=== PATIENT | female | born 1970 | race Caucasian/White ===

== ENCOUNTER 2016-08-12 08:41 | Emergency (ER) | payer BC ==
[~2016-08-12] VITALS: Wt 80.0 kg
[2016-08-12 08:43] VITALS: Wt 80.0 kg
[2016-08-12] MEDS ORDERED: LIDOCAINE/MYLANTA 40 ML BTL PO STA (08:57)
[2016-08-12] MEDS ORDERED: SOD CHLORIDE 0.9% 1,000 ML IV STA (08:57)
[2016-08-12] MEDS ORDERED: FAMOTIDINE 20 MG TAB PO STA (08:57)
[2016-08-12 09:27] LABS: ADD SCAN DIFF NO
[2016-08-12 09:30] LABS: BASOPHILS % 0.2 % (0.0-2.0); EOSINOPHILS # 0.1 10^3/ul (0.0-0.5); HEMATOCRIT 37.9 % (37.0-47.0); HEMOGLOBIN 11.7 g/dl (12.0-16.0); LYMPHOCYTES # 0.8 10^3/ul (0.8-2.9); LYMPHOCYTES % 13.9 % (15.0-51.0); MEAN CORPUSCULAR HEMOGLOBIN 25.8 pg (29.0-33.0); MEAN CORPUSCULAR HGB CONC 30.9 g/dl (32.0-37.0); MEAN CORPUSCULAR VOLUME 83.7 fl (82.0-101.0); MEAN PLATELET VOLUME 9.7 fl (7.4-10.4); MONOCYTE # 0.4 10^3/ul (0.3-0.9); MONOCYTES % 7.3 % (0.0-11.0); NEUTROPHIL # 4.7 10^3/ul (1.6-7.5); NEUTROPHILS % 77.4 % (39.0-77.0); PLATELET COUNT 536 10^3/UL (140-415); RED BLOOD COUNT 4.53 10^6/ul (4.20-5.40); RED CELL DISTRIBUTION WIDTH 15.9 % (11.5-14.5)
[2016-08-12 09:32] LABS: URINE BILIRUBIN (Dip) NEGATIVE (NEGATIVE); URINE BLOOD (Dip) NEGATIVE (NEGATIVE); URINE COLOR LT. YELLOW (YELLOW); URINE GLUCOSE (Dip) NEGATIVE (NEGATIVE); URINE KETONES (Dip) NEGATIVE (NEGATIVE); URINE LEUKOCYTE ESTERASE (Dip) NEGATIVE (NEGATIVE); URINE NITRITE (Dip) NEGATIVE (NEGATIVE); URINE UROBILINOGEN (Dip) 0.2 E.U./dL (0.1-1.0)
[2016-08-12 09:38] LABS: ADD UMIC NO; ALBUMIN 4.6 g/dl (3.3-4.9); URINE TOTAL PROTEIN (Dip) NEGATIVE (NEGATIVE)
[2016-08-12 09:39] LABS: POTASSIUM 3.5 mmol/L (3.5-5.1)
[2016-08-12 09:41] LABS: ALBUMIN/GLOBULIN RATIO 1.21; CREATININE 0.57 mg/dl (0.44-1.00); TOTAL PROTEIN 8.4 g/dl (6.1-8.1)
[2016-08-12 09:42] LABS: CALCIUM 8.9 mg/dl (8.4-10.2)
[2016-08-12] MEDS ORDERED: PANT40TA3 PO (10:41)
[2016-08-12 11:00] VITALS: BP 112/70; PULSE 90; RESP 16; TEMP 99.3
--- NOTE | 2016-08-12 11:31 | ERD ---
ER Documentation Chief Complaint Date/Time DATE: 08/12/16 TIME: 11:26 Chief Complaint ABD PAIN X 3 DAYS HPI 46 year old female with a past medical history of gastric ulcer presents to the ED complaining of epigastric and left upper quadrant abdominal pain that started 2 days ago. States that she had 3 episodes of nonbilious nonbloody vomiting 2 days ago. States that she had one episode of diarrhea yesterday. Reports that her last menses was on July 25, 2016. States that she did take omeprazole and Mylanta with no relief of her symptoms. States that she also regularly drinks apple cider vinegar to try to help with her digestion. Denies any chest pain, shortness of breath, fever, chills. ROS All systems reviewed and are negative except as per history of present illness. Medications Home Meds Active Scripts Pantoprazole* (Protonix*) 40 Mg Tablet., 40 MG PO DAILY, #30 TAB Prov:CARLOS KAMINSKI PA-C 08/12/16 Allergies Allergies: Coded Allergies: No Known Allergy (Unverified , 08/12/16) PMhx/Soc Medical and Surgical Hx: pt denies Medical Hx History of Surgery: Yes (Gallbladder, tubal ligation) Anesthesia Reaction: No Hx Alcohol Use: No Hx Substance Use: No Hx Tobacco Use: No Physical Exam Vitals Vital Signs Date Time Temp Pulse Resp B/P Pulse Ox O2 Delivery O2 Flow Rate FiO2 08/12/16 11:00 99.3 90 16 112/70 99 Room Air 08/12/16 08:43 99.4 106 18 160/83 99 Physical Exam Const: [id number], well-nourished. In no acute distress. Head: Atraumatic, normocephalic Eyes: Normal Conjunctiva without injection. No purulent discharge. ENT: Normal external ear, nose. Moist oropharynx without tonsillar exudates. Non -erythematous pharynx. Uvula midline. No drooling. No trismus. Neck: No cervical midline tenderness. Full range of motion. No meningismus. No cervical lymphadenopathy. No JVD. Resp: Clear to auscultation bilaterally. No wheezing, rhonchi, rales, or crackles. No accessory muscle use. No retractions. Cardio: Regular rate and rhythm. No murmurs, rubs or gallops. Abd: Soft, epigastric and left upper quadrant tenderness, non distended. Normal bowel sounds. No palpable masses. No rebound tenderness. No guarding. Negative McBurney's point. Negative psoas sign. Negative obturator sign. : See exam in MDM. Skin: No petechiae or rashes Back: No midline tenderness. No CVA tenderness. Ext: No cyanosis, or edema. Neur: Awake and alert. Normal gait. Normal coordination. Psych: Normal Mood and Affect Result Diagram: 08/12/1615 08/12/1615 Results 24 hrs Laboratory Tests Test 08/12/16 09:15 Alanine Aminotransferase (ALT/SGPT) 40IU/L Albumin 4.6g/dl Albumin/Globulin Ratio 1.21 Alkaline Phosphatase 107IU/L Anion Gap 21 Aspartate Amino Transf (AST/SGOT) 40IU/L Basophils # 0.010^3/ul Basophils % 0.2% Blood Urea Nitrogen 12mg/dl Calcium Level 8.9mg/dl Carbon Dioxide Level 27mmol/L Chloride Level 102mmol/L Creatinine 0.57mg/dl Direct Bilirubin 0.00mg/dl Eosinophils # 0.110^3/ul Eosinophils % 1.0% Globulin 3.80g/dl Glucose Level 91mg/dl Hematocrit 37.9% Hemoglobin 11.7g/dl Indirect Bilirubin 0.0mg/dl Lipase 68U/L Lymphocytes # 0.810^3/ul Lymphocytes % 13.9% Mean Corpuscular Hemoglobin 25.8pg Mean Corpuscular Hemoglobin Concent 30.9g/dl Mean Corpuscular Volume 83.7fl Mean Platelet Volume 9.7fl Monocytes # 0.410^3/ul Monocytes % 7.3% Neutrophils # 4.710^3/ul Neutrophils % 77.4% Nucleated Red Blood Cells # 0.010^3/ul Nucleated Red Blood Cells % 0.0/100WBC Platelet Count 11936^3/UL Potassium Level 3.5mmol/L Red Blood Count 4.5310^6/ul Red Cell Distribution Width 15.9% Sodium Level 146mmol/L Total Bilirubin 0.0mg/dl Total Protein 8.4g/dl Urine Bilirubin NEGATIVE Urine Clarity CLEAR Urine Color LT. YELLOW Urine Glucose NEGATIVE% Urine Hemoglobin NEGATIVE Urine Ketones NEGATIVE Urine Leukocyte Esterase NEGATIVE Urine Nitrite NEGATIVE Urine Specific [place] 1.020 Urine Total Protein NEGATIVE Urine Urobilinogen 0.2 E.U./dL Urine pH 8.5 White Blood Count 6.010^3/ul Current Medications Medications (Trade) Dose Ordered Sig/Ceferino Route PRN Reason Start Time Stop Time Status Last Admin Dose Admin Sodium Chloride (NS) 1,000 ml @ 1,000 mls/hr Q1H STAT IV 08/12/16 08:57 08/12/16 09:56 DC 08/12/16 09:17 Famotidine (Pepcid) 20 mg ONCE STAT PO 08/12/16 08:57 08/12/16 08:59 DC 08/12/16 09:17 Miscellaneous Medication (Gi Cocktail (2)) 40 ml ONCE STAT PO 08/12/16 08:57 08/12/16 08:59 DC 08/12/16 09:17 Procedures/MDM This is a 46-year-old female with a past medical history of gastric ulcers presents the ED complaining of epigastric and left upper quadrant abdominal pain. Patient is afebrile and nontoxic-appearing. Patient has normal vital signs. Patient was further worked up with CBC, CMP, lipase, UA, urine . Patient's pain and symptoms have improved after treatment with GI cocktail, famotidine. CBC: No leukocytosis. No e/o of systemic infection. No e/o anemia. CMP: No e/o severe acidosis, alkalosis, renal failure, diabetic ketoacidosis, liver disease Lipase within normal limits. Urine: No leukocyte esterase, no nitrites, no hematuria. Urine : negative Patient symptoms are likely due to her gastritis. No leukocytosis, elevated bilirubin, liver enzymes noted. Low suspicion for choledocholithiasis, cholangitis, cholecystitis, pancreatitis, or other emergent conditions. A differential diagnosis considered includes but is not limited to gastritis, GERD , peptic ulcer disease, cholecystitis, choledocholithiasis, cholangitis, pancreatitis, appendicitis, bowel obstruction, ileus, volvulus, nephrolithiasis , pyelonephritis, hepatitis, perforated viscus, diverticulitis, abdominal hernia , acute abdomen, mesenteric ischemia or other emergent conditions. Discharge medications: Protonix Follow up with primary care physician in 1-2 days for referral to deportation examiner. Instructed patient to return to the ED sooner for any worsening symptoms. Patient's questions were answered. Patient understood and agreed with discharge plan. Patient discharged stable. Departure Diagnosis: Primary Impression: Abdominal pain Abdominal location: left upper quadrant Qualified Code: R10.12 - Left upper quadrant pain Condition: Stable Patient Instructions: Abdominal Pain, Gastritis Vs. Ulcer Referrals: [facility] YOU HAVE RECEIVED A MEDICAL SCREENING EXAM AND THE RESULTS INDICATE THAT YOU DO NOT HAVE A CONDITION THAT REQUIRES URGENT TREATMENT IN THE EMERGENCY DEPARTMENT. FURTHER EVALUATION AND TREATMENT OF YOUR CONDITION CAN WAIT UNTIL YOU ARE SEEN IN YOUR DOCTORS OFFICE WITHIN THE NEXT 1-2 DAYS. IT IS YOUR RESPONSIBILITY TO MAKE AN APPOINTMENT FOR FOLOW-UP CARE. IF YOU HAVE A PRIMARY DOCTOR --you should call your primary doctor and schedule an appointment IF YOU DO NOT HAVE A PRIMARY DOCTOR YOU CAN CALL OUR PHYSICIAN REFERRAL HOTLINE AT IF YOU CAN NOT AFFORD TO SEE A PHYSICIAN YOU CAN CHOSE FROM THE FOLLOWING [facility] [address] [facility] [address] [facility] [facility] [address] [facility] [address] [facility] [address] [facility]. [address] [facility] [facility] YOU HAVE RECEIVED A MEDICAL SCREENING EXAM AND THE RESULTS INDICATE THAT YOU DO NOT HAVE A CONDITION THAT REQUIRES URGENT TREATMENT IN THE EMERGENCY DEPARTMENT. FURTHER EVALUATION AND TREATMENT OF YOUR CONDITION CAN WAIT UNTIL YOU ARE SEEN IN YOUR DOCTORS OFFICE WITHIN THE NEXT 1-2 DAYS. IT IS YOUR RESPONSIBILITY TO MAKE AN APPOINTMENT FOR FOLOW-UP CARE. IF YOU HAVE A PRIMARY DOCTOR --you should call your primary doctor and schedule and appointment IF YOU DO NOT HAVE A PRIMARY DOCTOR YOU CAN CALL OUR PHYSICIAN REFERRAL HOTLINE AT . IF YOU CAN NOT AFFORD TO SEE A PHYSICIAN YOU CAN CHOSE FROM THE FOLLOWING [facility]: [facility] [address] [place] [address] [facility] [address] [place] [address] [facility] [address] [place] [address] [facility] URGENT C[facility]/SPECIALTIES Additional Instructions: FOLLOW UP WITH YOUR PRIMARY CARE PHYSICIAN TOMORROW for a referral to deportation examiner.Return to this facility if you are not improving as expected. CARLOS KAMINSKI PA-C Aug 12, 2016 11:31
== END 2016-08-12 11:00 | disposition home or self-care (01) ==
LOC: FTE 08:41
DX: R10.12 Left upper quadrant pain (principal)
CPT/HCPCS: 36415; 80053; 81003; 83690; 85025; 99284; J7030